=== PATIENT | male | born 1955 | race Caucasian/White ===

== ENCOUNTER → 2021-01-01 | Outpatient (CLI) | payer BC ==
[2013-02-20 14:37] VITALS: BP 130/89
[~2021-01-01] MED LIST: ATENOLOL50 MG PO
[2021-01-01 12:59] LABS: EOS # 0.1 (0.04-0.40); EOS % 1.6 % (0.0-4.0); HEMATOCRIT 44.8 % (42.0-52.0); HEMOGLOBIN 14.7 g/dL (13.5-18.0); LYMPH# 1.6 (1.50-4.00); MEAN CELL VOLUME 91 fl (78-100); MEAN CORPUSCULAR HEMOGLOBIN 30 pg (27-31); MEAN CORPUSCULAR HGB CONC 33 g/dL (33-37); MEAN PLATELET VOLUME 10.2 fl (7.4-10.4); MONO # 0.7 (0.20-0.80); NEU # 3.3 (1.40-6.50); PLATELET COUNT 201 K/mm3 (130-400); RED BLOOD COUNT 4.91 M/mm3 (4.20-5.60); RED CELL DISTRIBUTION WIDTH 12.5 % (11.5-14.5); WHITE BLOOD COUNT 5.6 K/mm3 (4.8-10.8)
[2021-01-01 13:08] LABS: ALBUMIN 4.1 g/dL (3.4-4.8)
[2021-01-01 13:09] LABS: POTASSIUM 4.5 mmol/L (3.5-5.1)
[2021-01-01 13:10] LABS: CALCIUM 9.1 mg/dL (8.3-10.5)
[2021-01-01 13:11] LABS: PH-URINE 5.5 (5.0 - 8.0); TOTAL PROTEIN 6.5 g/dL (6.2-8.1); URINE APPEARANCE CLEAR; URINE BILIRUBIN NEGATIVE (NEGATIVE); URINE BLOOD NEGATIVE (NEGATIVE); URINE COLOR YELLOW; URINE GLUCOSE NEGATIVE (NEGATIVE); URINE KETONE NEGATIVE (NEGATIVE); URINE LEUKOCYTE ESTERASE NEGATIVE (NEGATIVE); URINE NITRATE NEGATIVE (NEGATIVE); URINE PROTEIN(semi-quant) TRACE mg/dL (NEGATIVE); URINE UROBILINOGEN NORMAL (NORMAL); URINE WBC 0-1 /hpf (0-3)
[2021-01-01 13:13] LABS: TOTAL BILIRUBIN 0.9 mg/dL (0.2-1.2)
== END ==
LOC: LAB 12:48
PROVIDERS: Family Medicine
DX: R10.84 Generalized abdominal pain (principal)

== ENCOUNTER → 2021-01-02 | Outpatient (CLI) | payer BC ==
[2013-02-20 14:37] VITALS: BP 130/89
== END ==
LOC: RAD 08:30
DX: R10.84 Generalized abdominal pain (principal)
CPT/HCPCS: Q9967